=== PATIENT | female | born 2000 | race Caucasian/White ===

== ENCOUNTER 2022-02-20 01:27 | Emergency (ER) | payer OTHER ==
[~2022-02-20] VITALS: Ht 160 cm; Wt 77.3 kg
[2022-02-20 02:22] VITALS: BP 129/78
== END 2022-02-20 05:53 | disposition home or self-care (01) ==
LOC: EMS 01:31
DX: M25.561 Pain in right knee (principal); J45.909 Unspecified asthma, uncomplicated
CPT/HCPCS: 99283